=== PATIENT | female | born 2000 | race Caucasian/White ===

== ENCOUNTER 2022-07-24 16:45 | Emergency (ER) | payer OTHER ==
[~2022-07-24] VITALS: Ht 177.8 cm; Wt 85.2 kg
[2022-07-24] MEDS ORDERED: acetaminophen 325mg tablet PO ONE (18:05)
[2022-07-24 19:01] LABS: BASOPHILS % (AUTO) 0.1 % (0-1); EOSINOPHILS % (AUTO) 0 % (0-6); HEMATOCRIT 37.3 % (35.0-45.0); HEMOGLOBIN 12.8 g/dl (12.0-16.0); LYMPHOCYTES # (AUTO) 1.3 X10'3 (1.1-4.8); LYMPHOCYTES % (AUTO) 4.6 % (21-51); MEAN CORPUSCULAR HEMOGLOBIN 31.1 PG (27.0-31.0); MEAN CORPUSCULAR HGB CONC 34.2 g/dL (33.0-36.5); MEAN CORPUSCULAR VOLUME 90.9 FL (78-98); MEAN PLATELET VOLUME 8.3 FL (7.4-10.4); MONOCYTES # (AUTO) 3.2 X10'3 (0-0.9); MONOCYTES % (AUTO) 11.7 % (2-12); NEUTROPHILS # (AUTO) 23.1 X10'3 (1.8-7.7); NEUTROPHILS % (AUTO) 83.6 % (42-75); PLATELET COUNT 307 X10'3 (140-440); RED BLOOD COUNT 4.11 X10'6 (4.20-5.60); RED CELL DISTRIBUTION WIDTH 12.7 % (11.5-14.5)
[2022-07-24 19:12] LABS: ALBUMIN 3.3 G/DL (3.4-5.0); ALBUMIN/GLOBULIN RATIO 0.8 (1.1-1.5); ALKALINE PHOSPHATASE 67 IU/L (46-116); ANION GAP 12 (8-16); ASPARTATE AMINO TRANSFERASE 9 U/L (10-37); BILIRUBIN,TOTAL 0.9 MG/DL (0.1-1.0); BLOOD UREA NITROGEN 8 MG/DL (7-18); BUN/CREATININE RATIO 8.3 (6.6-38.0); CALCIUM 8.8 MG/DL (8.5-10.1); CHLORIDE 99 MMOL/L (99-107); CREATININE 0.96 MG/DL (0.40-0.90); GLUCOSE 141 MG/DL (70-104); LIPASE < 50 U/L (73-393); POTASSIUM 3.3 MMOL/L (3.5-5.1); SODIUM 134 MMOL/L (135-145); TOTAL CARBON DIOXIDE 23.4 MMOL/L (24-32); TOTAL PROTEIN 7.3 G/DL (6.4-8.2); eGFR 73 ML/MIN
[2022-07-24 19:15] LABS: WHITE BLOOD COUNT 27.6 X10'3 (4.5-11.0)
[2022-07-24 19:22] LABS: ALANINE AMINOTRANSFERASE < 6 U/L (12-78)
[2022-07-24 20:03] LABS: PLATELET ESTIMATE NORMAL; TOTAL CELLS COUNTED 100
[2022-07-24] MEDS ORDERED: normal saline 1000ml 1,000 ML IV ONE (20:35)
[2022-07-24 21:00] LABS: CLARITY,URINE CLOUDY (Clear); COLOR,URINE YELLOW (Yellow); GLUCOSE, URINE NEGATIVE (Neg); KETONES,URINE 40 mg/dl (Neg); LEUKOCYTE ESTERASE ,URINE LARGE (Neg); NITRITES, URINE POSITIVE (Neg); OCCULT BLOOD,URINE SMALL (Neg); PH,URINE 6.5 (4.8-8.0); PROTEIN,URINE TRACE mg/dl (Neg); URINE HCG NEGATIVE (NEG); UROBILINOGEN,URINE 0.2 E.U/dL (0.2-1.0)
[2022-07-24 21:10] LABS: UA COLLECTION TYPE VOIDED
[2022-07-24 21:13] LABS: WBC,URINE TNTC /HPF (0-4)
[2022-07-24 21:14] LABS: BACTERIA,URINE 3+ /HPF (Neg); MUCUS STRANDS NONE SEEN /LPF (Neg); SQUAMOUS EPITHELIAL CELL,UR FEW /LPF (FEW)
[2022-07-24] MEDS ORDERED: CefTRIAXone 2gm/D5W 50ml BAG 50 ML IV ONE (21:25)
[2022-07-24] MEDS ORDERED: normal saline 1000ML IV soln IV ONE (21:25)
[2022-07-24 21:40] LABS: C-REACTIVE PROTEIN 16.15 MG/DL (0.0-0.5)
[2022-07-24] MEDS ORDERED: DOXYCYCLINE 100MG CAPSULE PO STA (21:40)
[2022-07-24] MEDS ORDERED: DOXY-411 PO (21:47)
[2022-07-24] MEDS ORDERED: ONDA4TAB12 PO (21:47)
[2022-07-24 22:04] VITALS: BP 114/68
== END 2022-07-24 22:08 | disposition home or self-care (01) ==
LOC: ER 16:47
DX: A41.9 Sepsis, unspecified organism (principal); Z20.822 Contact with and (suspected) exposure to COVID-19; N39.0 Urinary tract infection, site not specified; Z79.899 Other long term (current) drug therapy
CPT/HCPCS: 36415; 71045; 80053; 81001; 81025; 83605; 83690; 84145; 85007; 85025; 86140; 87040; 87077; 87088; 87186; 87502; 87503; 87635; 93005; 96361; 96365; 99285; C9803; J0696; J7030